=== PATIENT | male | born 1960 | race African-American/Black ===

== ENCOUNTER 2019-04-12 23:08 | Emergency (ER) | payer OTHER ==
[2019-04-12 23:23] VITALS: BP 112/76; PULSE 108; TEMP 97.9; BMI 31.6
--- NOTE | 2019-04-12 23:51 | PDOC ---
History of Present Illness - General Chief Complaint: Urinary Problem Stated Complaint: URINATION PROBLEM - History of Present Illness Initial Comments: The pt is a 58M w/ a history of 'heart problem' who presents for evaluation of 1 day of multiple episodes of NB watery diarrhea with associated nausea. He denies abdominal pain, vomiting, fevers, chest pain, SOB. Pt reports eating a [place] restaurant last night and no one else he knows had what he ate. He has not tried taking anything for his symptoms and has never had anything happen before. 04/13/19 00:02 Past History - Past Medical History Allergies/Adverse Reactions: Allergies Allergy/AdvReac Type Severity Reaction Status Date / Time No Known Drug Allergies Allergy Verified 04/12/19 23:23 shrimp Allergy Intermediate Uncoded 04/12/19 23:23 possible fish as per pt Allergy Unknown Uncoded 04/12/19 23:23 Home Medications: Ambulatory Orders No Home Medications 0 dose .ROUTE UTDICT 07/10/13 COPD: No - Psycho Social/Smoking Cessation Hx Smoking Status: No Smoking History: Never smoked Years of Tobacco Use: 0 Number of Cigarettes Smoked Daily: 0 Cigars Per Day: 0 Review of Systems - Review of Systems Able to Perform ROS?: Yes Comments:: GENERAL/CONSTITUTIONAL: No fever or chills. No weakness HEAD, EYES, EARS, NOSE AND THROAT: No change in vision. No change in hearing. No sore throat CARDIOVASCULAR: No chest pain or shortness of breath RESPIRATORY: Denies cough, hemoptysis GASTROINTESTINAL: +nausea, diarrhea GENITOURINARY: No dysuria, frequency, or change in urination MUSCULOSKELETAL: No joint or muscle swelling or pain. No neck or back pain SKIN: No rash NEUROLOGIC: No headache, vertigo, loss of consciousness, or change in strength/ sensation ENDOCRINE: No increased thirst. No abnormal weight change HEMATOLOGIC/LYMPHATIC: No anemia, easy bleeding, or history of blood clots ALLERGIC/IMMUNOLOGIC: No hives or skin allergy 04/12/19 23:50 Is the patient limited Slovak proficient: No *Physical Exam - Vital Signs Last Vital Signs Temp Pulse Resp BP Pulse Ox 97.9 F 108 H 18 112/76 96 04/12/19 23:21 04/12/19 23:21 04/12/19 23:21 04/12/19 23:21 04/12/19 23:21 - Physical Exam GENERAL: Awake, alert, and oriented to person/place/time, in no acute distress HEAD: No signs of trauma, normocephalic, atraumatic EYES: PERRLA, EOMI, sclera anicteric, conjunctiva clear ENT: Hearing grossly normal, nares patent, oropharynx clear without exudates. Moist mucosa LUNGS: No distress, speaks in full sentences, clear to auscultation bilaterally HEART: Regular rate and rhythm, normal S1 and S2, no murmurs appreciated, peripheral pulses normal and equal bilaterally ABDOMEN: Soft, nontender, normoactive bowel sounds. No guarding, no rebound EXTREMITIES: Normal inspection, Normal range of motion, no edema. No clubbing or cyanosis NEUROLOGICAL: Cranial nerves II through XII grossly intact. Normal speech, normal gait, no focal sensorimotor deficits SKIN: Warm, Dry 04/12/19 23:50 ED Treatment Course - LABORATORY CBC & Chemistry Diagram: 04/13/19 00:17 04/13/19 00:17 Medical Decision Making - Medical Decision Making The pt is a 58M w/ a history of 'heart problem' who presents for evaluation of 1 day of multiple episodes of NB watery diarrhea with associated nausea. Consider food poisoning, viral gastro ED Course CMP, CBC, Lipase ECG IVF, Zofran 04/13/19 00:18 ECG w/ NSR; HR 82; QTc 408; no axis deviation; no DARCIE Labs unremarkable Pt feels improved at this time Plan for D/C w/ PCP f/u Discharge instructions and return precautions given Patient in agreement and verbalized understanding Dispo: Home 04/13/19 01:22 Discharge - Discharge Information Problems reviewed: Yes Clinical Impression/Diagnosis: Nausea Diarrhea Qualifiers: Diarrhea type: unspecified type Qualified Code(s): R19.7 - Diarrhea, unspecified Condition: Stable Disposition: HOME - Admission No - Follow up/Referral Referrals: Yves Denton [Primary Care Provider] - - Patient Discharge Instructions Patient Printed Discharge Instructions: Diarrhea, [place] Diet Additional Instructions: You were seen in the Emergency Department for evaluation of diarrhea and nausea. Your labs were unremarkable. Review the handout provided at discharge. Follow up with your primary care provider within a week. Return to the Emergency Department if you develop fevers, chest pain, inability to tolerate liquids, abdominal pain, trouble breathing, worsening symptoms, or any new/concerning symptoms. - Post Discharge Activity Work/Back to School Note: Back to Work
[2019-04-13] MEDS ORDERED: SODIUM CHLORIDE 0.9% 500 ML INFUS.BAG IV ONE (00:02)
[2019-04-13] MEDS ORDERED: ONDANSETRON 4 MG/2 ML VIAL IVPUSH ONE (00:02)
[2019-04-13] MEDS ORDERED: ONDANSETRON 4 MG/2 ML VIAL ONE (00:11)
[2019-04-13 00:26] LABS: BASO % 0.5 % (0-2.0); EOS % 0.6 % (0-4.5); HEMATOCRIT 43.6 % (35.4-49); LYMPH % 12.7 % (8-40); MCH 30.8 pg (25.7-33.7); MCHC 34.4 g/dl (32.0-35.9); MEAN CELL VOLUME 89.4 fl (80-96); MEAN PLT VOLUME 8.4 fl (7.5-11.1); MONO % 5.3 % (3.8-10.2); NEUT % 80.9 % (42.8-82.8); PLATELET COUNT 179 K/MM3 (134-434); RBC 4.88 M/mm3 (4.00-5.60); RDW 13.9 % (11.9-15.9); WHITE BLOOD COUNT 4.2 K/mm3 (4.0-10.0)
[2019-04-13 00:59] LABS: ALBUMIN 3.9 g/dl (3.4-5.0); BILIRUBIN,TOTAL 0.5 mg/dL (0.2-1); BLOOD UREA NITROGEN 13.9 mg/dL (7-18); CREATININE 1.1 mg/dL (0.55-1.3); POTASSIUM 3.5 mmol/L (3.5-5.1); TOT PROT 7.3 g/dl (6.4-8.2)
--- NOTE | 2019-04-13 11:01 | EKG ---
Test Reason : Blood Pressure : / mmHG Vent. Rate : 082 BPM Atrial Rate : 082 BPM P-R Int : 172 ms QRS Dur : 090 ms QT Int : 350 ms P-R-T Axes : 050 -07 034 degrees QTc Int : 408 ms POOR DATA QUALITY, INTERPRETATION MAY BE ADVERSELY AFFECTED NORMAL SINUS RHYTHM NO PREVIOUS ECGS AVAILABLE Confirmed by ANGIE JOHNSON MD ([id number]) on 04/13/2019 11:00:50 AM Referred By: Confirmed By:ANGIE JOHNSON MD
== END 2019-04-13 01:40 | disposition home or self-care (01) ==
LOC: JER 23:08
PROC: 3E033GC Introduction of Other Therapeutic Substance into Peripheral Vein, Percutaneous Approach (ICD-10-PCS; principal; 2019-04-12)
DX: K52.9 Noninfective gastroenteritis and colitis, unspecified (principal)
CPT/HCPCS: 36415; 80053; 83690; 85025; 93005; 93010; 96374; 99284-25